=== PATIENT | female | born 1990 | race Caucasian/White ===

== ENCOUNTER 2018-04-10 15:24 | Emergency (ER) | payer MEDICARE, MEDICAID ==
[~2018-04-10] VITALS: Ht 167.6 cm; Wt 113.4 kg
--- OUTSIDE RECORDS SUMMARY | 2018-04-10 15:28 | XMS REPORT | Continuity of Care Document ---
Author Author [facility] Organization [facility] Address Unknown Phone Unavailable Care Team Providers Care Medical Billing And Coding Instructor Name Role Phone ALVIN DE OLIVEIRA PP Insurance Providers Payer Name Policy Number Subscriber Name Relationship Giulia [facility] [id number] Valerie Bekah S 01 Self / Same As Patient Wps Medicare [id number] Bekah Garcia S 01 Self / Same As Patient Advance Directives Directive Response Recorded Date Advance Directives N 09/18/12 1:38pm Problems No Known Problems or Medical conditions. Social History History Response Recorded Date/Time Alcohol Use Denies Use 09/18/12 4:36pm Recreational Drug Use N 09/18/12 4:36pm Recent Foreign Travel N 09/18/12 1:38pm Recent Infectious Disease Exposure N 03/25 4:36pm Hospitalization with Isolation Denies 03/25 1:38pm Allergies, Adverse Reactions, Alerts Allergen Type Severity Reaction Last Updated No Known Drug Allergies 09/18/12 Medications Medication Dose Units Route Sig Qty Days No Active Prescriptions or Reported Medications Response Recorded Date/Time Status not known Unknown Results No Known Relevant Diagnostic Tests, Laboratory Data and/or Discharge Summary. Encounters Encounter Location Date/Time Departed Emergency [facility] 03/25 1:27pm
--- OUTSIDE RECORDS SUMMARY | 2018-04-10 15:29 | XMS REPORT | Continuity of Care Document ---
Author Author On License Of [facility] Address Unknown Phone Unavailable Allergies There is no data. Medications There is no data. Problems Date Dx Coded Attending Type Code Diagnosis Diagnosed By 05/29/2011 465.9 ACUTE UPPER RESPIRATORY INFECTIONS OF UNSPECIFIED SITE 05/29/2011 LAVERNE PAUL DO K 465.9 ACUTE UPPER RESPIRATORY INFECTIONS OF UNSPECIFIED SITE 05/29/2011 BIANCA DAVIES APRN 465.9 ACUTE UPPER RESPIRATORY INFECTIONS OF UNSPECIFIED SITE 05/29/2011 465.9 ACUTE UPPER RESPIRATORY INFECTIONS OF UNSPECIFIED SITE 05/29/2011 465.9 ACUTE UPPER RESPIRATORY INFECTIONS OF UNSPECIFIED SITE 05/29/2011 465.9 ACUTE UPPER RESPIRATORY INFECTIONS OF UNSPECIFIED SITE 05/29/2011 465.9 ACUTE UPPER RESPIRATORY INFECTIONS OF UNSPECIFIED SITE 05/29/2011 465.9 ACUTE UPPER RESPIRATORY INFECTIONS OF UNSPECIFIED SITE 05/29/2011 465.9 ACUTE UPPER RESPIRATORY INFECTIONS OF UNSPECIFIED SITE 05/29/2011 465.9 ACUTE UPPER RESPIRATORY INFECTIONS OF UNSPECIFIED SITE 05/29/2011 PAUL LAVERNE BRASHER K 465.9 ACUTE UPPER RESPIRATORY INFECTIONS OF UNSPECIFIED SITE 05/29/2011 STEPHENIE AVALOS APRN 465.9 ACUTE UPPER RESPIRATORY INFECTIONS OF UNSPECIFIED SITE 05/29/2011 JOON JAIMES, CHARLES Mccurdy 465.9 ACUTE UPPER RESPIRATORY INFECTIONS OF UNSPECIFIED SITE 05/29/2011 PAUL JAMIE BRASHERA K 465.9 ACUTE UPPER RESPIRATORY INFECTIONS OF UNSPECIFIED SITE 05/29/2011 PAUL DO LAVERNE K 465.9 ACUTE UPPER RESPIRATORY INFECTIONS OF UNSPECIFIED SITE 05/29/2011 PAUL DO LAVERNE K 465.9 ACUTE UPPER RESPIRATORY INFECTIONS OF UNSPECIFIED SITE 05/29/2011 PAUL DO LAVERNE K 465.9 ACUTE UPPER RESPIRATORY INFECTIONS OF UNSPECIFIED SITE 05/18/2012 784.91 POSTNASAL DRIP 05/18/2012 786.2 COUGH 05/18/2012 JAMIE PAUL DOA K 784.91 POSTNASAL DRIP 05/18/2012 PAUL DO, LAVERNE K 786.2 COUGH 05/18/2012 SAMSON ALANIZ, BIANCA R 784.91 POSTNASAL DRIP 05/18/2012 SAMSON ALANIZ, BIANCA R 786.2 COUGH 05/18/2012 784.91 POSTNASAL DRIP 05/18/2012 786.2 COUGH 05/18/2012 784.91 POSTNASAL DRIP 05/18/2012 786.2 COUGH 05/18/2012 784.91 POSTNASAL DRIP 05/18/2012 786.2 COUGH 05/18/2012 784.91 POSTNASAL DRIP 05/18/2012 786.2 COUGH 05/18/2012 784.91 POSTNASAL DRIP 05/18/2012 786.2 COUGH 05/18/2012 784.91 POSTNASAL DRIP 05/18/2012 786.2 COUGH 05/18/2012 784.91 POSTNASAL DRIP 05/18/2012 786.2 COUGH 05/18/2012 PAUL DO, LAVERNE K 784.91 POSTNASAL DRIP 05/18/2012 PAUL DO, LAVERNE K 786.2 COUGH 05/18/2012 ROGELIO DALTON APRN, STEPHENIE N 784.91 POSTNASAL DRIP 05/18/2012 ROGELIO DALTON WASTEWATER PROJECT MANAGER, STEPHENIE N 786.2 COUGH 05/18/2012 JOON JAIMES, CHARLES Mccurdy 784.91 POSTNASAL DRIP 05/18/2012 JOON JAIMES, CHARLES Mccurdy 786.2 COUGH 05/18/2012 PAUL DO, LAVERNE K 784.91 POSTNASAL DRIP 05/18/2012 PAUL DO, LAVERNE K 786.2 COUGH 05/18/2012 PAUL DO, LAVERNE K 784.91 POSTNASAL DRIP 05/18/2012 PAUL DO, LAVERNE K 786.2 COUGH 05/18/2012 PAUL DO, LAVERNE K 784.91 POSTNASAL DRIP 05/18/2012 PAUL DO, LAVERNE K 786.2 COUGH 05/18/2012 PAUL DO, LAVERNE K 784.91 POSTNASAL DRIP 05/18/2012 PAUL DO, LAVERNE K 786.2 COUGH 07/22/2012 784.0 headache 07/22/2012 PAUL DO, LAVERNE K 784.0 headache 07/22/2012 JERONIMO DAVIES APRNRICIA R 784.0 headache 07/22/2012 784.0 headache 07/22/2012 784.0 headache 07/22/2012 784.0 headache 07/22/2012 784.0 headache 07/22/2012 784.0 headache 07/22/2012 784.0 headache 07/22/2012 784.0 headache 07/22/2012 PAUL JAMIE BRASHERA K 784.0 headache 07/22/2012 STEPHENIE AVALOS APRN N 784.0 headache 07/22/2012 CHARLES DUPREE MD 784.0 headache 07/22/2012 PAUL DO LAVERNE K 784.0 headache 07/22/2012 PAUL DO, LAVERNE K 784.0 HEADACHE 07/22/2012 PAUL DO, LAVERNE K 784.0 HEADACHE 08/17/2012 BEVERLY BRASHER LAVERNE K 462 PHARYNGITIS ACUTE 08/17/2012 BIANCA DAVIES APRN 462 PHARYNGITIS ACUTE 08/17/2012 462 PHARYNGITIS ACUTE 08/17/2012 462 PHARYNGITIS ACUTE 08/17/2012 462 PHARYNGITIS ACUTE 08/17/2012 462 PHARYNGITIS ACUTE 08/17/2012 462 PHARYNGITIS ACUTE 08/17/2012 462 PHARYNGITIS ACUTE 08/17/2012 462 PHARYNGITIS ACUTE 08/17/2012 LAVERNE PAUL DO K 462 PHARYNGITIS ACUTE 08/17/2012 STEPHENIE VAALOS APRN N 462 PHARYNGITIS ACUTE 08/17/2012 CHARLES DUPREE MD 462 PHARYNGITIS ACUTE 08/17/2012 LAVERNE PAUL DO K 462 PHARYNGITIS ACUTE 08/17/2012 JAMIE PAUL DOA K 462 PHARYNGITIS ACUTE 08/17/2012 JAMIE PAUL DOA K 462 PHARYNGITIS ACUTE 08/26/2012 BIANCA DAVIES APRN 461.9 SINUSITIS ACUTE 08/26/2012 461.9 SINUSITIS ACUTE 08/26/2012 461.9 SINUSITIS ACUTE 08/26/2012 461.9 SINUSITIS ACUTE 08/26/2012 461.9 SINUSITIS ACUTE 08/26/2012 461.9 SINUSITIS ACUTE 08/26/2012 461.9 SINUSITIS ACUTE 08/26/2012 461.9 SINUSITIS ACUTE 08/26/2012 LAVERNE PAUL DO 461.9 SINUSITIS ACUTE 08/26/2012 STEPHENIE AVALOS APRN N 461.9 SINUSITIS ACUTE 08/26/2012 CHARLES DUPREE MD 461.9 SINUSITIS ACUTE 08/26/2012 LAVERNE PAUL DO 461.9 SINUSITIS ACUTE 08/26/2012 LAVERNE PAUL DO K 461.9 SINUSITIS ACUTE 08/26/2012 JAMIE PAUL DOA K 461.9 SINUSITIS ACUTE 09/21/2012 719.41 PAIN- SHOULDER 09/21/2012 719.41 PAIN- SHOULDER 09/21/2012 719.41 PAIN- SHOULDER 09/21/2012 719.41 PAIN- SHOULDER 09/21/2012 719.41 PAIN- SHOULDER 09/21/2012 719.41 PAIN- SHOULDER 09/21/2012 719.41 PAIN- SHOULDER 09/21/2012 LAVERNE PAUL DO 719.41 PAIN- SHOULDER 09/21/2012 STEPHENIE AVALOS APRN N 719.41 PAIN- SHOULDER 09/21/2012 CHARLES DUPREE MD 719.41 PAIN- SHOULDER 09/21/2012 LAVERNE PAUL DO 719.41 PAIN- SHOULDER 09/21/2012 LAVERNE PAUL DO K 719.41 PAIN- SHOULDER 09/21/2012 PAUL JAMIE BRASHERA K 719.41 PAIN- SHOULDER 11/18/2012 477.9 ALLERGIC RHINITIS 11/18/2012 477.9 ALLERGIC RHINITIS 11/18/2012 477.9 ALLERGIC RHINITIS 11/18/2012 477.9 ALLERGIC RHINITIS 11/18/2012 477.9 ALLERGIC RHINITIS 11/18/2012 477.9 ALLERGIC RHINITIS 11/18/2012 LAVERNE PAUL DO K 477.9 ALLERGIC RHINITIS 11/18/2012 STEPHENIE AVALOS APRN N 477.9 ALLERGIC RHINITIS 11/18/2012 CHARLES DUPREE MD 477.9 ALLERGIC RHINITIS 11/18/2012 LAVERNE PAUL DO 477.9 ALLERGIC RHINITIS 11/18/2012 PAUL JAMIE BRASHERA K 477.9 ALLERGIC RHINITIS 11/18/2012 PAUL JAMIE BRASHERA K 477.9 ALLERGIC RHINITIS 01/05/2013 305.1 TOBACCO ABUSE 01/05/2013 V65.42 TOBACCO COUNSELING 01/05/2013 305.1 TOBACCO ABUSE 01/05/2013 V65.42 TOBACCO COUNSELING 01/05/2013 305.1 TOBACCO ABUSE 01/05/2013 V65.42 TOBACCO COUNSELING 01/05/2013 305.1 TOBACCO ABUSE 01/05/2013 V65.42 TOBACCO COUNSELING 01/05/2013 PAUL DO, LAVERNE K 305.1 TOBACCO ABUSE 01/05/2013 PAUL DO, LAVERNE K V65.42 TOBACCO COUNSELING 01/05/2013 STEPHENIE AVALOS APRN N 305.1 TOBACCO ABUSE 01/05/2013 MERCADOSTEPHENIE FROST APRN N V65.42 TOBACCO COUNSELING 01/05/2013 CHARLES DUPREE MD 305.1 TOBACCO ABUSE 01/05/2013 CHARLES DUPREE MD V65.42 TOBACCO COUNSELING 01/05/2013 PAUL DO, LAVERNE K 305.1 TOBACCO ABUSE 01/05/2013 PAUL DO, LAVERNE K V65.42 TOBACCO COUNSELING 01/05/2013 PAUL DO, LAVERNE K 305.1 TOBACCO ABUSE 01/05/2013 PAUL DO, LAVERNE K V65.42 TOBACCO COUNSELING 01/05/2013 PAUL DO, LAVERNE K 305.1 TOBACCO ABUSE 01/05/2013 PAUL DO, LAVERNE K V65.42 TOBACCO COUNSELING 01/17/2013 380.10 INFECTIVE OTITIS EXTERNA UNSPECIFIED 01/17/2013 380.10 INFECTIVE OTITIS EXTERNA UNSPECIFIED 01/17/2013 380.10 INFECTIVE OTITIS EXTERNA UNSPECIFIED 01/17/2013 PAUL DO, LAVERNE K 380.10 INFECTIVE OTITIS EXTERNA UNSPECIFIED 01/17/2013 MAVIS AVALOS APRNCY N 380.10 INFECTIVE OTITIS EXTERNA UNSPECIFIED 01/17/2013 CHARLES DUPREE MD 380.10 INFECTIVE OTITIS EXTERNA UNSPECIFIED 01/17/2013 PAUL DO, LAVERNE K 380.10 INFECTIVE OTITIS EXTERNA UNSPECIFIED 01/17/2013 PAUL DO, LAVERNE K 380.10 INFECTIVE OTITIS EXTERNA UNSPECIFIED 01/17/2013 PAUL DO, LAVERNE K 380.10 INFECTIVE OTITIS EXTERNA UNSPECIFIED 01/31/2013 V72.41 TEST NEGATIVE RESULT 01/31/2013 V72.41 TEST NEGATIVE RESULT 01/31/2013 V72.41 TEST NEGATIVE RESULT 01/31/2013 PAUL DO, LAVERNE K V72.41 TEST NEGATIVE RESULT 01/31/2013 STEPHENIE AVALOS APRN V72.41 TEST NEGATIVE RESULT 01/31/2013 CHARLES DUPREE MD V72.41 TEST NEGATIVE RESULT 01/31/2013 LAVERNE PAUL DO V72.41 TEST NEGATIVE RESULT 01/31/2013 PAUL JAMIE BRASHERA K V72.41 TEST NEGATIVE RESULT 01/31/2013 JAMIE PAUL DOA K V72.41 TEST NEGATIVE RESULT 02/04/2013 787.02 NAUSEA ALONE 02/04/2013 787.02 NAUSEA ALONE 02/04/2013 787.02 NAUSEA ALONE 02/04/2013 LAVERNE PAUL DO 787.02 NAUSEA ALONE 02/04/2013 STEPHENIE AVALOS APRN 787.02 NAUSEA ALONE 02/04/2013 CHARLES DUPREE MD 787.02 NAUSEA ALONE 02/04/2013 LAVERNE PAUL DO K 787.02 NAUSEA ALONE 02/04/2013 LAVERNE PAUL DO 787.02 NAUSEA ALONE 02/04/2013 JAMIE PAUL DOA K 787.02 NAUSEA ALONE 02/22/2013 599.0 URINARY TRACT INFECTION SITE NOT SPECIFIED 02/22/2013 599.0 URINARY TRACT INFECTION SITE NOT SPECIFIED 02/22/2013 599.0 URINARY TRACT INFECTION SITE NOT SPECIFIED 02/22/2013 LAVERNE PAUL DO 599.0 URINARY TRACT INFECTION SITE NOT SPECIFIED 02/22/2013 STEPHENIE AVALOS APRN 599.0 URINARY TRACT INFECTION SITE NOT SPECIFIED 02/22/2013 CHARLES DUPREE MD 599.0 URINARY TRACT INFECTION SITE NOT SPECIFIED 02/22/2013 LAVERNE PAUL DO K 599.0 URINARY TRACT INFECTION SITE NOT SPECIFIED 02/22/2013 JAMIE PAUL DOA K 599.0 URINARY TRACT INFECTION SITE NOT SPECIFIED 02/22/2013 LAVERNE PAUL DO K 599.0 URINARY TRACT INFECTION SITE NOT SPECIFIED 02/24/2013 V76.2 CERVICAL CANCER SCREENING (PAP SMEAR) 02/24/2013 493.90 ASTHMA UNSPECIFIED 02/24/2013 789.04 ABDOMINAL PAIN LEFT LOWER QUADRANT 02/24/2013 V25.9 CONTRACEPTION MANAGEMENT 02/24/2013 V74.5 STD SCREEN 02/24/2013 V76.2 CERVICAL CANCER SCREENING (PAP SMEAR) 02/24/2013 493.90 ASTHMA UNSPECIFIED 02/24/2013 789.04 ABDOMINAL PAIN LEFT LOWER QUADRANT 02/24/2013 V25.9 CONTRACEPTION MANAGEMENT 02/24/2013 V74.5 STD SCREEN 02/24/2013 V76.2 CERVICAL CANCER SCREENING (PAP SMEAR) 02/24/2013 PAUL DO LAVERNE K 493.90 ASTHMA UNSPECIFIED 02/24/2013 PAUL DO, LAVERNE K 789.04 ABDOMINAL PAIN LEFT LOWER QUADRANT 02/24/2013 PAUL DO, LAVERNE K V25.9 CONTRACEPTION MANAGEMENT 02/24/2013 PAUL DO, LAVERNE K V74.5 STD SCREEN 02/24/2013 PAUL DO, LAVERNE K V76.2 CERVICAL CANCER SCREENING (PAP SMEAR) 02/24/2013 STEPHENIE AVALOS APRN N 493.90 ASTHMA UNSPECIFIED 02/24/2013 MERCADO CASHLETA WASTEWATER PROJECT MANAGER, STEPHENIE N 789.04 ABDOMINAL PAIN LEFT LOWER QUADRANT 02/24/2013 MERCADO CASHLETA WASTEWATER PROJECT MANAGER, STEPHENIE N V25.9 CONTRACEPTION MANAGEMENT 02/24/2013 MERCADO CASHERO WASTEWATER PROJECT MANAGER, STEPHENIE N V74.5 STD SCREEN 02/24/2013 MERCADO CASHERO WASTEWATER PROJECT MANAGER, STEPHENIE N V76.2 CERVICAL CANCER SCREENING (PAP SMEAR) 02/24/2013 CHARLES DUPREE MD 493.90 ASTHMA UNSPECIFIED 02/24/2013 CHARLES DUPREE MD 789.04 ABDOMINAL PAIN LEFT LOWER QUADRANT 02/24/2013 CHARLES DUPREE MD V25.9 CONTRACEPTION MANAGEMENT 02/24/2013 CHARLES DUPREE MD V74.5 STD SCREEN 02/24/2013 CHARLES DUPREE MD V76.2 CERVICAL CANCER SCREENING (PAP SMEAR) 02/24/2013 PAUL DO LAVERNE K 493.90 ASTHMA UNSPECIFIED 02/24/2013 PAUL DO LAVERNE K 789.04 ABDOMINAL PAIN LEFT LOWER QUADRANT 02/24/2013 PAUL DO LAVERNE K V25.9 CONTRACEPTION MANAGEMENT 02/24/2013 PAUL DO, LAVERNE K V74.5 STD SCREEN 02/24/2013 PAUL DO, LAVERNE K V76.2 CERVICAL CANCER SCREENING (PAP SMEAR) 02/24/2013 PAUL DO LAVERNE K 493.90 ASTHMA UNSPECIFIED 02/24/2013 PAUL DO LAVERNE K 789.04 ABDOMINAL PAIN LEFT LOWER QUADRANT 02/24/2013 PAUL DO LAVERNE K V25.9 CONTRACEPTION MANAGEMENT 02/24/2013 PAUL DO, LAVERNE K V74.5 STD SCREEN 02/24/2013 PAUL DO, LAVERNE K V76.2 CERVICAL CANCER SCREENING (PAP SMEAR) 02/24/2013 PAUL DO, LAVERNE K 493.90 ASTHMA UNSPECIFIED 02/24/2013 PAUL DO LAVERNE K 789.04 ABDOMINAL PAIN LEFT LOWER QUADRANT 02/24/2013 PAUL DOJAMIEA K V25.9 CONTRACEPTION MANAGEMENT 02/24/2013 PAUL DO LAVERNE K V74.5 STD SCREEN 02/24/2013 PAUL DO, LAVERNE K V76.2 CERVICAL CANCER SCREENING (PAP SMEAR) 04/12/2013 LAVERNE PAUL DO K V04.81 FLU SHOT 04/12/2013 STEPHENIE AVALOS APRN N V04.81 FLU SHOT 04/12/2013 CHARLES DUPREE MD V04.81 FLU SHOT 04/12/2013 LAVERNE PAUL DO K V04.81 FLU SHOT 04/12/2013 PAUL DOJAMIEA K V04.81 FLU SHOT 04/12/2013 PAUL DOJAMIEA K V04.81 FLU SHOT 07/26/2013 STEPHENIE AVALOS APRN N 034.0 STREPTOCOCCAL SORE THROAT 07/26/2013 CHARLES DUPREE MD 034.0 STREPTOCOCCAL SORE THROAT 07/26/2013 LAVERNE PAUL DO K 034.0 STREPTOCOCCAL SORE THROAT 07/26/2013 LAVERNE PAUL DO K 034.0 STREPTOCOCCAL SORE THROAT 07/26/2013 JAMIE PAUL DOA K 034.0 STREPTOCOCCAL SORE THROAT 09/01/2013 CHARLES DUPREE MD 719.44 joint pain fingers 09/01/2013 PAUL DOJAMIEA K 719.44 joint pain fingers 09/01/2013 PAUL DOJAMIEA K 719.44 JOINT PAIN FINGERS 09/01/2013 PAUL DO LAVERNE K 719.44 JOINT PAIN FINGERS 10/24/2013 PAUL DOJAMIEA K 845.00 UNSPECIFIED SITE OF ANKLE SPRAIN 10/24/2013 PAUL DOJAMIEA K 845.00 UNSPECIFIED SITE OF ANKLE SPRAIN 10/24/2013 PAUL JAMIE BRASHERA K 845.00 UNSPECIFIED SITE OF ANKLE SPRAIN 12/26/2013 LAVERNE PAUL DO 462 ACUTE PHARYNGITIS 12/26/2013 LAVERNE PAUL DO 786.2 COUGH 12/26/2013 LAVERNE PAUL DO V25.02 CONTRACEPTION - ANY METHOD 12/26/2013 LAVERNE PAUL DO V69.2 HIGH-RISK SEXUAL BEHAVIOR Procedures Code Description [place] [address] XRAY SHOULDER RIGHT COMP 2 VIEWS 09/28/2012 Physical Physical Therapy, [facility] 12/17/2012 39838 GC/CHLAM PROBE (STATE) 02/07/2013 39433 PAP SMEAR 02/07/2013 83554 MEASURE BLOOD OXYGEN LEVEL 02/07/2013 Q0091 PAP SMEAR OBTAIN SMEAR 02/07/2013 02796 URINE TEST (IN- HOUSE) 02/22/2013 25305 UA W/ CULTURE IF INDICATED 02/22/2013 76616 CULTURE URINE 02/23/2013 51442 THERAPUTIC INJ SQ/IM 02/24/2013 J1050 DEPO PROVERA 02/24/2013 51422 URINE TEST (IN- HOUSE) 02/24/2013 24797 TRICHOMONAS (IN-HOUSE) 02/24/2013 28809 CULTURE UROGENITAL 02/27/2013 J0696 ROCEPHIN INJ 1 g 07/26/2013 56424 STREP A (IN-HOUSE) 07/26/2013 45457 INFLUENZA A & B (IN-HOUSE) 07/26/2013 38864 ROUTINE VENIPUNCTURE 09/01/2013 37162 XRAY HAND RIGHT MIN 3 VIEWS 09/01/2013 ANAANA IDA ANALYZER (SCREEN) 09/01/2013 78884 URIC ACID 09/01/2013 40517 CBC 09/01/2013 88282 CRP 09/01/2013 55878 TEST, URINE (IN- HOUSE) 12/26/2013 09484 OXIMETRY 12/26/2013 J1050 DEPO PROVERA 12/26/2013 86579 THERAPUTIC INJ SQ/IM 12/26/2013 90493 STREP A (IN-HOUSE) 12/26/2013 Results There is no data. Encounters ACCT No. Visit Date/Time Discharge Status Pt. Type Provider Facility Loc./Unit Complaint [id number] 12/26/2013 11:44:00 12/26/2013 23:59:59 CLS Outpatient LAVERNE PAUL DO [id number] 10/29/2013 10:05:00 10/29/2013 23:59:59 CLS Outpatient LAVERNE PAUL DO [id number] 10/24/2013 12:22:00 10/24/2013 23:59:59 CLS Outpatient LAVERNE PAUL DO [id number] 09/01/2013 14:17:00 09/01/2013 23:59:59 CLS Outpatient CHARLES DUPREE MD [id number] 07/26/2013 12:11:00 07/26/2013 23:59:59 CLS Outpatient STEPHENIE AVALOS APRN [place] [id number] 04/12/2013 10:15:00 04/12/2013 23:59:59 CLS Outpatient LAVERNE PAUL DO [id number] 09/21/2012 09:45:00 09/21/2012 23:59:59 CLS Outpatient [id number] 08/26/2012 16:47:00 08/26/2012 23:59:59 CLS Outpatient SAMSON WASTEWATER PROJECT MANAGERBIANCA Ibrahim [id number] 08/17/2012 15:06:00 08/17/2012 23:59:59 CLS Outpatient LAVERNE PAUL DO [id number] 07/22/2012 12:03:00 07/22/2012 23:59:59 CLS Outpatient [id number] 05/29/2011 15:25:00 05/29/2011 23:59:59 CLS Outpatient LAVERNE PAUL DO [id number] 03/28/2013 12:21:00 Document Registration [id number] 02/24/2013 09:09:00 Document Registration [id number] 02/04/2013 13:47:00 Document Registration [id number] 01/05/2013 17:51:00 Document Registration [id number] 12/02/2012 14:14:00 Document Registration [id number] 11/18/2012 13:11:00 Document Registration [id number] 01/04/2013 15:12:00 01/17/2013 08:18:00 DIS Outpatient
[2018-04-10 16:01] LABS: BILIRUBIN,URINE NEGATIVE (NEGATIVE); CLARITY,URINE CLEAR; COLOR,URINE YELLOW; GLUCOSE, URINE (UA) NEGATIVE (NEGATIVE); KETONES,URINE NEGATIVE (NEGATIVE); LEUKOCYTE ESTERASE ,URINE 2+ (NEGATIVE); NITRITE,URINE NEGATIVE (NEGATIVE); PH,URINE 6.5 (5-9); PROTEIN,URINE NEGATIVE (NEGATIVE); UROBILINOGEN,URINE NORMAL (NORMAL)
[2018-04-10 16:01] LABS: BASOPHILS % (AUTO) 1 % (0-10); EOSINOPHILS # (AUTO) 0.1 10^3/uL (0.0-0.3); EOSINOPHILS % (AUTO) 2 % (0-10); HEMATOCRIT 41 % (35-52); HEMOGLOBIN 14.3 G/DL (11.5-16.0); LYMPHOCYTES # (AUTO) 3.2 X 10^3 (1.0-4.0); LYMPHOCYTES % (AUTO) 36 % (12-44); MEAN CORPUSCULAR HEMOGLOBIN 28 PG (25-34); MEAN CORPUSCULAR HGB CONC 35 G/DL (32-36); MEAN CORPUSCULAR VOLUME 80 FL (80-99); MEAN PLATELET VOLUME 9.7 FL (7.4-10.4); MONOCYTES # (AUTO) 0.6 X 10^3 (0.0-1.0); MONOCYTES % (AUTO) 7 % (0-12); NEUTROPHILS # (AUTO) 4.9 X 10^3 (1.8-7.8); NEUTROPHILS % (AUTO) 55 % (42-75); PLATELET COUNT 266 10^3/uL (130-400); RED BLOOD COUNT 5.06 10^6/uL (4.35-5.85); RED CELL DISTRIBUTION WIDTH 14.9 % (10.0-14.5); WHITE BLOOD COUNT 8.9 10^3/uL (4.3-11.0)
[2018-04-10 16:11] LABS: BACTERIA,URINE NEGATIVE /HPF
[2018-04-10 16:20] LABS: ALANINE AMINOTRANSFERASE 31 U/L (0-55); ALBUMIN 4.7 GM/DL (3.2-4.5); ALKALINE PHOSPHATASE 68 U/L (40-136); BILIRUBIN,TOTAL 0.4 MG/DL (0.1-1.0); BUN/CREATININE RATIO 11; CALCIUM 10.4 MG/DL (8.5-10.1); CARBON DIOXIDE 22 MMOL/L (21-32); CHLORIDE 105 MMOL/L (98-107); CREATININE SERUM 0.82 MG/DL (0.60-1.30); GFR ESTIMATED > 60; GLUCOSE 92 MG/DL (70-105); LIPASE 26 U/L (8-78); POTASSIUM 3.7 MMOL/L (3.6-5.0); SODIUM 140 MMOL/L (135-145); TOTAL PROTEIN 7.6 GM/DL (6.4-8.2)
--- NOTE | 2018-04-10 16:41 | ED Abdominal Pain ---
General Chief Complaint: Abdominal/GI Problems Stated Complaint: ABD PAIN Nursing Triage Note: PT AMB TO ROOM #10 W/O DIFFICULTY WITH CO LOWER ABD PAIN THAT RADIATES TO HER BACK. REPORTS PAIN BEGAN 3 DAYS AGO AND HAS BEEN STEADILY INCREASING SINCE. UPON ARRIVAL TO ED PT BOWEL SOUNDS NOTED TO BE ACTIVE BILAT AND REPORTS LAST BM ON THIS DAY. PT REPORTS LAST MENSTRUAL CYCLE BEGAN ON 02/25/18 AND IS CURRENTLY 2 WKS LATE. Sepsis Screen: No Definite Risk Source of Information: Patient Exam Limitations: No Limitations History of Present Illness Date Seen by Provider: Apr 10, 2018 Time Seen by Provider: 15:45 Initial Comments This 27-year-old woman presents to the emergency room with complaints of generalized type of abdominal pain associated with nausea over the past 3 days. It seems to be focused around the epigastric region and the suprapubic region. She denies any urinary changes, vaginal discharge, pain with intercourse, diarrhea, constipation, or measured fever. She reports family thought she had a subjective fever earlier today. Last bowel movement was at noon today and was normal. Patient reports she is almost 2 weeks late on her period. Pain seems to be worse with movement and sitting up but is better lying down. Pain is reported as 9/10. Pain initially seemed somewhat migratory. Allergies and Home Medications Allergies Coded Allergies: No Known Drug Allergies (Unverified , 09/18/12) Home Medications Cephalexin 500 Mg Capsule, 500 MG PO QID Prescribed by: JING ONEAL on 04/10/181811 Omeprazole 20 Mg Tablet.dr, 20 MG PO BID Prescribed by: JING ONEAL on 04/10/181811 Patient Home Medication List Home Medication List Reviewed: Yes Review of Systems Review of Systems Constitutional: see HPI EENTM: No Symptoms Reported Respiratory: No Symptoms Reported Cardiovascular: No Symptoms Reported Gastrointestinal: See HPI Genitourinary: No Symptoms Reported Musculoskeletal: no symptoms reported Skin: no symptoms reported Psychiatric/Neurological: No Symptoms Reported Endocrine: No Symptoms Reported Hematologic/Lymphatic: No Symptoms Reported Past Gwdicwv-Vehpyq-Lbpbwd Hx Past Med/Social Hx: Reviewed and Corrections made Patient Social History Alcohol Use: Denies Use Recreational Drug Use: No Smoking Status: Current Everyday Smoker Type Used: Cigarettes 2nd Hand Smoke Exposure: Yes Recent Foreign Travel: No Contact w/Someone Who Travel: No Recent Infectious Disease Expo: No Recent Hopitalizations: No Physical Abuse: No Sexual Abuse: No Seasonal Allergies Seasonal Allergies: No Past Medical History Surgeries: Yes Adenoidectomy, Tonsillectomy Respiratory: Yes Asthma Cardiac: No Neurological: No : No Last Menstrual Period: Feb 25, 2018 Genitourinary: No Gastrointestinal: No Musculoskeletal: No Endocrine: No HEENT: No Cancer: No Psychosocial: No Integumentary: No Blood Disorders: No Family Medical History Reviewed Nursing Family Hx Physical Exam Vital Signs Vital Signs - First Documented 04/10/18 15:35 Temp 97.9 Pulse 80 Resp 18 B/P (MAP) 119/90 (100) Pulse Ox 98 O2 Delivery Room Air Capillary Refill : Less Than 3 Seconds Height/Weight/BMI Height: 5'6.00" Weight: 250lbs. oz. 113.703752tu; BMI Method:Stated General Appearance: WD/WN, no apparent distress HEENT: PERRL/EOMI, normal ENT inspection Neck: normal inspection Respiratory: lungs clear, normal breath sounds, no respiratory distress, no accessory muscle use Cardiovascular: regular rate, rhythm, no edema, no murmur Gastrointestinal: normal bowel sounds, soft, tenderness (epigastrium and throughout the pelvis) Extremities: normal inspection, no pedal edema Neurologic/Psychiatric: manufacturing development engineer II-XII nml as tested, no motor/sensory deficits, alert, normal mood/affect, oriented x 3 Skin: normal color, warm/dry Progress/Results/Core Measures Results/Orders Lab Results Laboratory Tests Test 04/10/18 15:37 04/10/18 15:50 Range/Units Urine Color YELLOW Urine Clarity CLEAR Urine pH 6.5 5-9 Urine Specific [place] 1.010 L 1.016-1.022 Urine Protein NEGATIVE NEGATIVE Urine Glucose (UA) NEGATIVE NEGATIVE Urine Ketones NEGATIVE NEGATIVE Urine Nitrite NEGATIVE NEGATIVE Urine Bilirubin NEGATIVE NEGATIVE Urine Urobilinogen NORMAL NORMAL MG/DL Urine Leukocyte Esterase 2+ H NEGATIVE Urine RBC (Auto) 3+ H NEGATIVE Urine RBC 2-5 H /HPF Urine WBC 5-10 H /HPF Urine Squamous Epithelial Cells 5-10 /HPF Urine Crystals NONE /LPF Urine Bacteria NEGATIVE /HPF Urine Casts NONE /LPF Urine Mucus NEGATIVE /LPF Urine Culture Indicated YES White Blood Count 8.9 4.3-11.0 10^3/uL Red Blood Count 5.06 4.35-5.85 10^6/uL Hemoglobin 14.3 11.5-16.0 G/DL Hematocrit 41 35-52 % Mean Corpuscular Volume 80 80-99 FL Mean Corpuscular Hemoglobin 28 25-34 PG Mean Corpuscular Hemoglobin Concent 35 32-36 G/DL Red Cell Distribution Width 14.9 H 10.0-14.5 % Platelet Count 266 130-400 10^3/uL Mean Platelet Volume 9.7 7.4-10.4 FL Neutrophils (%) (Auto) 55 42-75 % Lymphocytes (%) (Auto) 36 12-44 % Monocytes (%) (Auto) 7 0-12 % Eosinophils (%) (Auto) 2 0-10 % Basophils (%) (Auto) 1 0-10 % Neutrophils # (Auto) 4.9 1.8-7.8 X 10^3 Lymphocytes # (Auto) 3.2 1.0-4.0 X 10^3 Monocytes # (Auto) 0.6 0.0-1.0 X 10^3 Eosinophils # (Auto) 0.1 0.0-0.3 10^3/uL Basophils # (Auto) 0.0 0.0-0.1 10^3/uL Sodium Level 140 135-145 MMOL/L Potassium Level 3.7 3.6-5.0 MMOL/L Chloride Level 105 98-107 MMOL/L Carbon Dioxide Level 22 21-32 MMOL/L Anion Gap 13 5-14 MMOL/L Blood Urea Nitrogen 9 7-18 MG/DL Creatinine 0.82 0.60-1.30 MG/DL Estimat Glomerular Filtration Rate > 60 BUN/Creatinine Ratio 11 Glucose Level 92 70-105 MG/DL Calcium Level 10.4 H 8.5-10.1 MG/DL Corrected Calcium 8.5-10.1 MG/DL Total Bilirubin 0.4 0.1-1.0 MG/DL Aspartate Amino Transf (AST/SGOT) 21 5-34 U/L Alanine Aminotransferase (ALT/SGPT) 31 0-55 U/L Alkaline Phosphatase 68 40-136 U/L Total Protein 7.6 6.4-8.2 GM/DL Albumin 4.7 H 3.2-4.5 GM/DL Lipase 26 8-78 U/L Serum Test, Qualitative NEGATIVE NEGATIVE Micro Results Microbiology 04/10/18 Urine Culture - Final, Complete See Report My Orders Orders - JING DEMPSEY MD Cbc With Automated Diff (04/10/18 15:52) Comprehensive Metabolic Panel (04/10/18 15:52) Hcg,Qualitative Serum (04/10/18 15:52) Lipase (04/10/18 15:52) Ua Culture If Indicated (04/10/18 15:52) Saline Lock/Iv-Start (04/10/18 15:52) Urine Culture (04/10/18 15:37) Ct Abdomen/Pelvis W (04/10/18 16:37) Iohexol Injection (Omnipaque 350 Mg/Ml 1 (04/10/18 16:45) Sodium Chloride Flush (Catheter Flush Sy (04/10/18 16:45) Ns (Ivpb) (Sodium Chloride 0.9%) (04/10/18 16:45) Pharmacy Communication (Pharmacy Communi (04/10/18 16:41) Lidocaine 2% Viscous 15 Ml (Xylocaine Vi (04/10/18 17:30) Antacid Suspension (Mylanta Suspension (04/10/18 17:30) Ondansetron Injection (Zofran Injectio (04/10/18 17:30) Medications Given in ED Vital Signs/I&O 04/10/18 04/10/18 15:35 18:18 Temp 97.9 97.9 Pulse 80 63 Resp 18 18 B/P (MAP) 119/90 (100) 127/82 (100) Pulse Ox 98 98 O2 Delivery Room Air Room Air Blood Pressure Mean: 100 Progress Progress Note #1: Time: 16:50 Progress Note Labs were unremarkable. UA demonstrated subtle suggestion of urinary tract infection. No abnormalities were found to explain her pain. I discussed further options for workup including CT scan of the abdomen and pelvis. Risks and benefits were explained to her including radiation risk and risk of possible reaction to contrast dye. Patient expressed understanding of the risks and would like to proceed with CT scan. She would really like some answers regarding her pain, especially since she has 2 young children at home to care for. Progress Note #2: Progress Note CT scan revealed some cholelithiasis without cholecystitis as well as some small ovarian cysts. Patient is felt to have multi-factorial etiology for her pain. Contributing factors may include urinary tract infection, ovarian cysts, cholelithiasis, and gastritis. Patient reports GI cocktail and Zofran did improve her pain to a satisfactory degree. Discharge instructions were reviewed with patient. Diagnostic Imaging Diagonstic Imaging: CT Plain Films/CT/US/NM/MRI: abdomen, pelvis Comments CT abdomen and pelvis reviewed by me and report reviewed. Discussed with Dr. Barajas. See report below: NAME: BEKAH GARCIA [facility] REC#: [id number] PT STATUS: DEP ER : 1990 PHYSICIAN: JING DEMPSEY MD ADMIT DATE: 04/10/18/ER Signed Date of Exam: 04/10/18 CT ABDOMEN/PELVIS W PROCEDURE: CT abdomen and pelvis with contrast. TECHNIQUE: Multiple contiguous axial images were obtained through the abdomen and pelvis after administration of intravenous contrast. INDICATION: Abdominal pain. FINDINGS: There are no prior studies available for comparison. There are numerous gallstones within the gallbladder. The gallbladder itself is not well distended and difficult to assess. There is no clear evidence for acute cholecystitis; however if further evaluation is desired, then ultrasound will be recommended. The liver is of lower density than usually seen. 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 The spleen, pancreas, adrenals, kidneys, aorta and inferior vena cava show no sign of an acute abnormality. The stomach is partially filled with fluid and consequently difficult to assess. There is no pelvic mass or free fluid collection noted. There may be small cysts associated with both ovaries. If further evaluation is desired, then ultrasound will be recommended. The urinary bladder is grossly unremarkable. There are few diverticula in the sigmoid colon, but there is no sign of acute diverticulitis. The appendix is visualized and is not abnormally thickened. The lung bases are clear. The bone windows show no evidence for a fracture or for a destructive lesion. IMPRESSION: 1. There is cholelithiasis, but there is no evidence for acute cholecystitis. There is also a question of a few small cysts associated with the ovaries. If further evaluation of the gallbladder and the ovaries is desired, then ultrasound will be recommended. 2. There is no acute abnormality of the abdomen or pelvis noted otherwise. 3. 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 4. These results were discussed with Dr. Dempsey. Dictated by: Dictated on workstation # [id number] Dict: 04/10/18 1704 Trans: 04/11/18 1041 Interpreted by: MARIA ALEJANDRA BARAJAS MD Electronically signed by: MARIA ALEJANDRA BARAJAS MD 04/11/18 1041 Departure Impression Primary Impression: Epigastric pain Additional Impressions: Pelvic pain Cholelithiasis Qualified Codes: K80.20 - Calculus of gallbladder without cholecystitis without obstruction Urinary tract infection Qualified Codes: N39.0 - Urinary tract infection, site not specified Ovarian cyst Qualified Codes: N83.201 - Unspecified ovarian cyst, right side; N83.202 - Unspecified ovarian cyst, left side Disposition: HOME, SELF-CARE Condition: Improved Departure-Patient Inst. Decision time for Depature: 17:50 Referrals: NO,LOCAL PHYSICIAN (PCP/Family) Primary Care Physician Patient Instructions: Gallstones (DC), Acute Abdomen (Belly Pain), Adult (DC), Ovarian Cyst (DC) Add. Discharge Instructions: Take the omeprazole and antacid medication as prescribed for the next month. Follow-up with a primary care provider soon as possible. Please call him Thursday to make an appointment. If you would like to go to the [facility] you may call them at [phone]. Complete your antibiotic for bladder infection as prescribed. Avoid the following: Eating large meals, eating close to bedtime, fatty or greasy foods, alcohol, tobacco, NSAID medications such as ibuprofen or naproxen , caffeine, carbonation, chocolate, spicy foods, tomato products, mints, and anything else you know irritates your stomach. Return to emergency room if you have worsening symptoms. You may take Tylenol (acetaminophen) up to 1000 mg every 6 hours as needed for pain. All discharge instructions reviewed with patient and/or family. Voiced understanding. Scripts Omeprazole (Omeprazole) 20 Mg Tablet. 20 MG PO BID, #60 TAB Prov: JING DEMPSEY MD 04/10/18 Cephalexin (Keflex) 500 Mg Capsule 500 MG PO QID, #28 CAP Prov: JING DEMPSEY MD 04/10/18 JING DEMPSEY MD Apr 10, 2018 16:41
[2018-04-10] MEDS ORDERED: IOHEXOL 350 MG/ML 100 ML (OMNIPAQUE 350) VIAL IV ONE (16:45)
[2018-04-10] MEDS ORDERED: CATHETER FLUSH 10 ML SYR IV PRN (16:45)
[2018-04-10] MEDS ORDERED: NS 250 ML (IVPB) BAG IV ONE (16:45)
[2018-04-10] MEDS ORDERED: LIDOCAINE 2% VISCOUS 15 ML UDC PO ONE (17:30)
[2018-04-10] MEDS ORDERED: ANTACID SUSP 30 ML UDC (MYLANTA) PO ONE (17:30)
[2018-04-10] MEDS ORDERED: ONDANSETRON 4 MG/2 ML (SDV) Z0FRAN IVP ONE (17:30)
--- NOTE | 2018-04-10 17:38 | Diagnostic Imaging Report ---
PROCEDURE: CT abdomen and pelvis with contrast. TECHNIQUE: Multiple contiguous axial images were obtained through the abdomen and pelvis after administration of intravenous contrast. INDICATION: Abdominal pain. FINDINGS: There are no prior studies available for comparison. There are numerous gallstones within the gallbladder. The gallbladder itself is not well distended and difficult to assess. There is no clear evidence for acute cholecystitis; however if further evaluation is desired, then ultrasound will be recommended. The liver is of lower density than usually seen. 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 The spleen, pancreas, adrenals, kidneys, aorta and inferior vena cava show no sign of an acute abnormality. The stomach is partially filled with fluid and consequently difficult to assess. There is no pelvic mass or free fluid collection noted. There may be small cysts associated with both ovaries. If further evaluation is desired, then ultrasound will be recommended. The urinary bladder is grossly unremarkable. There are few diverticula in the sigmoid colon, but there is no sign of acute diverticulitis. The appendix is visualized and is not abnormally thickened. The lung bases are clear. The bone windows show no evidence for a fracture or for a destructive lesion. IMPRESSION: 1. There is cholelithiasis, but there is no evidence for acute cholecystitis. There is also a question of a few small cysts associated with the ovaries. If further evaluation of the gallbladder and the ovaries is desired, then ultrasound will be recommended. 2. There is no acute abnormality of the abdomen or pelvis noted otherwise. 3. 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 4. These results were discussed with Dr. Dempsey. Dictated by: Dictated on workstation # [id number]
[2018-04-10] MEDS ORDERED: CEPH-507 PO (18:12)
[2018-04-10] MEDS ORDERED: OMEP20TA7 PO (18:12)
[2018-04-10 18:18] VITALS: BP 127/82
== END 2018-04-10 18:20 | disposition home or self-care (01) ==
LOC: EDUNIT# 15:24 → ER 15:25
DX: K80.20 Calculus of gallbladder without cholecystitis without obstruction (principal); N39.0 Urinary tract infection, site not specified; N83.201 Unspecified ovarian cyst, right side; J45.909 Unspecified asthma, uncomplicated; F17.210 Nicotine dependence, cigarettes, uncomplicated; Z90.89 Acquired absence of other organs
CPT/HCPCS: 36415; 74177; 80053; 81000; 83690; 84703; 85025; 87088

== ENCOUNTER 2019-09-09 16:02 | Outpatient (CLI) | payer MEDICARE, MEDICAID ==
[~2019-09-09] VITALS: Ht 168 cm; Wt 106.2 kg
[~2019-09-09 16:02] MED LIST: CEPH-507 PO; OMEP20TA7 PO
--- NOTE | 2019-09-09 16:11 | NUR ---
BEKAH GARCIA presented to unit via ambulation from ED, accompanied by family, with c/o CONTRACTIONS. BEKAH GARCIA S weighed, gowned, voided, and to bed. EFHM and TOCO applied, VS taken. BEKAH GARCIA oriented to bed controls, call light, TV, heat, and A/C controls.
[2019-09-09 16:30] VITALS: BP 116/58
[2019-09-09 16:44] LABS: BILIRUBIN,URINE NEGATIVE (NEGATIVE); CLARITY,URINE CLEAR; COLOR,URINE YELLOW; GLUCOSE, URINE (UA) NEGATIVE (NEGATIVE); KETONES,URINE NEGATIVE (NEGATIVE); LEUKOCYTE ESTERASE ,URINE 1+ (NEGATIVE); NITRITE,URINE NEGATIVE (NEGATIVE); PH,URINE 6.5 (5-9); PROTEIN,URINE NEGATIVE (NEGATIVE)
[2019-09-09 16:56] LABS: BACTERIA,URINE FEW /HPF
[2019-09-09 16:57] LABS: AMORPHOUS SEDIMENT,UR RARE AMOR URATES /LPF
--- NOTE | 2019-09-09 17:03 | NUR ---
Dr. Pimentel called and notified of pt arrival and c/o ctx. notified of pt report that she is due December 31 (23.5weeks) and sees a doctor in [place], [place]. Pt reports robbin q10min off and on since last night, and also had mucousy discharge x1 this afternoon. Pt denies complications with current or previous pregnancies, vaginal itching or burning, UTI s/sx, or recent intercourse. FHR, ctx pattern, VS, UA reported to Dr. Cates rec'd to encourage pt to orally hydrate, call in macrobid 100mg BID x7 days and D/C home.
[2019-09-09] MEDS ORDERED: PREN-53 PO (17:26)
[2019-09-09] MEDS ORDERED: NITR-65 PO (17:27)
--- NOTE | 2019-09-09 17:35 | NUR ---
Discharge instructions explained to pt with copy provided to pt. Pt notified of script called to [facility] pharmacy. Pt verbalizes understanding of instructions and signs to verify. Denies questions or concerns at this time. Pt ambulates off unit to private vehicle accompanied by family. NO s/s of distress noted
--- NOTE | 2019-09-12 08:06 | Physician Query-Final Dx ---
Clinic Account Progress/Dx Physician Query: Please give diagnosis Please include # weeks gestation Date of Service Sep 09, 2019 at 16:02 ONUR BOYER Sep 12, 2019 08:06
== END 2019-09-09 17:35 | disposition home or self-care (01) ==
LOC: WSo 16:02 → LDRP 16:02 → WSo 17:35
PROVIDERS: ATTEND Family Medicine
DX: O62.9 Abnormality of forces of labor, unspecified (principal); Z3A.23 23 weeks gestation of pregnancy
CPT/HCPCS: 81000; 87088; 99213

== ENCOUNTER 2019-09-20 20:08 | Emergency (ER) | payer MEDICARE, MEDICAID ==
[~2019-09-20] VITALS: Ht 170 cm; Wt 107.0 kg
[~2019-09-20 20:08] MED LIST changes: +NITR-65 PO; +PREN-53 PO
[2019-09-20] MEDS ORDERED: RX-MUPIROCIN (BACTROBAN) 2% OINT 22 GM TUBE TOP STA (20:21)
--- NOTE | 2019-09-20 20:29 | ED Integumentary General ---
General Chief Complaint: Bite-Animal/Human/Insect Stated Complaint: INSECT BITE Source: patient Exam Limitations: no limitations History of Present Illness Date Seen by Provider: Sep 20, 2019 Time Seen by Provider: 20:23 Initial Comments To ER with a suspected insect bite to the anterior abdomen. She is 5 weeks 5 months . Abscesses present for 3-4 days area no fevers or chills. Timing/Duration: just prior to arrival Severity: moderate Possible Cause: no cause identified Associated Symptoms: denies symptoms Allergies and Home Medications Allergies Coded Allergies: No Known Drug Allergies (Unverified , 09/18/12) Home Medications Nitrofurantoin Monohyd/M-Cryst 100 Mg Capsule, 1 TAB PO BID Prescribed by: FLO DE DIOS on 09/09/191726 Dmd910/Iron Fumarate/FA/Dss 1 Each Tablet, 1 EACH PO DAILY, (Reported) Patient Home Medication List Home Medication List Reviewed: Yes Review of Systems Review of Systems Constitutional: see HPI EENTM: see HPI Respiratory: no symptoms reported Cardiovascular: no symptoms reported Genitourinary: no symptoms reported Musculoskeletal: no symptoms reported Skin: see HPI Psychiatric/Neurological: No Symptoms Reported Endocrine: No Symptoms Reported Past Pipbapc-Siazau-Aiyjxh Hx Patient Social History Type Used: Cigarettes 2nd Hand Smoke Exposure: No Recent Foreign Travel: No Contact w/Someone Who Travel: No Recent Hopitalizations: No Seasonal Allergies Seasonal Allergies: No Past Medical History Surgeries: Yes Adenoidectomy, Tonsillectomy Respiratory: Yes Asthma Cardiac: No Neurological: No Genitourinary: No Gastrointestinal: No Musculoskeletal: No Endocrine: No HEENT: No Cancer: No Psychosocial: No Integumentary: No Blood Disorders: No Physical Exam Vital Signs Capillary Refill : General Appearance: WD/WN, no apparent distress HEENT: PERRL/EOMI, normal ENT inspection Respiratory: no respiratory distress, no accessory muscle use Neurologic/Psychiatric: alert, normal mood/affect, oriented x 3 Skin: normal color, warm/dry Skin Problem Character: abscess, other (marble-sized area of fluctuance to the anterior abdominal wall surrounded by 2 cm of erythema) Procedures/Interventions I&D : Blade Size: 11 Progress Anesthetized locally with 0.25 mL of 1% lidocaine without epinephrine, cleaned with alcohol swab, incised with 11 blade scalpel, small amount of purulent material expressed, culture collected and sent to lab, covered with gauze. Progress/Results/Core Measures Results/Orders My Orders Orders - EDEN CONDE APRN Wound Culture (09/20/19 20:21) Clindamycin Capsule (Cleocin Capsule) (09/20/19 20:30) Rx-Mupirocin 2% Oint (Rx-Bactroban) (09/20/19 20:21) Departure Impression Primary Impression: Abdominal wall abscess Disposition: HOME, SELF-CARE Condition: Stable Departure-Patient Inst. Decision time for Depature: 20:27 Referrals: NO,LOCAL PHYSICIAN (PCP/Family) Primary Care Physician Patient Instructions: Abscess Incision and Drainage (DC) Add. Discharge Instructions: 1. Apply topical antibiotic ointment twice daily for 7 days. Take the oral antibiotics 3 times daily for 7 days. Follow-up with your doctor next week for recheck. All discharge instructions reviewed with patient and/or family. Voiced understanding. Scripts Clindamycin HCl (Clindamycin HCl) 300 Mg Capsule 300 MG PO TID, #21 CAP Prov: EDEN CONDE APRN 09/20/19 EDEN CONDE APRN Sep 20, 2019 20:29
[2019-09-20] MEDS ORDERED: CLIN300C11 PO (20:30)
[2019-09-20] MEDS ORDERED: CLINDAMYCIN 150 MG (CLEOCIN) CAP PO ONE (20:30)
[2019-09-20 20:37] VITALS: BP 97/64
== END 2019-09-20 20:39 | disposition home or self-care (01) ==
LOC: EDUNIT# 20:08 → ER 20:09
DX: O99.719 Diseases of the skin and subcutaneous tissue complicating pregnancy, unspecified trimester (principal); L02.211 Cutaneous abscess of abdominal wall; Z3A.00 Weeks of gestation of pregnancy not specified
CPT/HCPCS: 87070; 87077; 87186; 87205; 99283

== ENCOUNTER 2019-10-03 20:49 | Observation (INO) | payer MEDICARE, MEDICAID ==
[~2019-10-03] VITALS: Ht 167.7 cm; Wt 106.4 kg
[~2019-10-03 20:49] MED LIST changes: +CLIN300C11 PO
--- OUTSIDE RECORDS SUMMARY | 2019-10-03 20:55 | XMS REPORT ---
Author Author Bianca Mace Doctor Organization [facility] Address Unknown Phone Unavailable Care Team Providers Care Senior Game Developer Name Role Phone Migration, Doctor Unavailable Unavailable PROBLEMS Type Condition ICD9-CM Code BXL62-BW Code Onset Dates Condition S tatus SNOMED Code Problem Screening for malignant neoplasm of the cervix V76.2 Active 325782395 Problem Counseling on substance use and abuse V65.42 Active 361242742 Problem Screening examination for venereal disease V74.5 Active 961335695 Problem Pain in joint, shoulder region 719.41 Active 716522214 Problem Pain in joint, hand 719.44 Active 176975178 Problem Need for prophylactic vaccination and inoculation, Influen za V04.81 Active 521318157 Problem Problems related to high-risk sexual behavior V69.2 Active 441067737 Problem Abdominal pain, left lower quadrant 789.04 Active 023523094 Problem Unspecified site of ankle sprain and strain 845.00 Active 65753263 Problem Cough 786.2 Active 99857822 Problem Nausea alone 787.02 Active 5521902 07 Problem Headache 784.0 Active 70612255 Problem Postnasal drip 784.91 Active 01956 007 Problem Urinary tract infection, site not specified 599.0 Active 49411737 Problem Asthma, unspecified, unspecified status 493.90 Active 23311055 Problem Acute pharyngitis 462 Active 36 6076646 Problem Streptococcal sore throat 034.0 Acti ve 18567099 Problem General counseling for initiation of oth er contraceptive measures V25.02 Active 535262111165512 Problem Allergic sinusitis J30.9 Active 3 6645232 Problem Unspecified contraceptive management V25.9 Active 657589866 Problem examination or test, negative result V72.41 Active 739624173 Problem Acute sinusitis, unspecified 461.9 A ctive 62809616 Problem Unspecified infective otitis externa 380.10 Active 70550433 Problem Allergic rhinitis, cause unspecified 477.9 Active 63235096 Problem Nondependent tobacco use disorder 305.1 Active 414501264 ALLERGIES No Information ENCOUNTERS Encounter Location Date [facility] [address] [facility] [id number] [place] [address] Sep, Allergic sinusitis J30.9 [facility] [address] [id number] [place] [address] 14 Oct, 2014 [facility] [id number] [place] [address] Oct, [facility] [id number] [place] [address] Dec, [facility] [id number] [place] [address] Dec, [facility] [id number] [place] [address] Dec, [facility] [id number] [place] [address] Dec, [facility] [id number] [place] [address] Oct, [facility] [id number] [place] [address] Oct, [facility] [id number] [place] [address] 17 Oct, 2013 [facility] [id number] [place] [address] Oct, [facility] [id number] [place] [address] 14 Oct, 2013 [facility] [id number] [place] [address] Oct, [facility] [id number] [place] [address] Sep, [facility] [id number] [place] [address] Sep, [facility] [id number] [place] [address] Aug, [facility] [place] [facility] [address] [facility] [id number] [facility] [place] [address] Aug, [facility] [place] [facility] [address] [facility] [id number] [facility] [place] [address] Aug, [facility] [place] [facility] [address] [id number] [facility] [place] [address] Jul, [facility] [place] [facility] [address] [id number] [place] [address] Jul, [facility] [place] [facility] [address] [facility] [id number] [place] [address] Apr, [facility] [place] [facility] [address] [id number] [place] [address] Mar, [facility] [place] [facility] [address] [id number] [facility] [place] [address] Feb, [facility] [place] [facility] [address] [id number] [facility] [place] [address] Feb, [facility] [place] [facility] [address] [facility] [id number] [facility] [place] [address] Feb, [facility] [place] [facility] [address] [id number] [facility] [place] [address] Feb, [facility] [place] [facility] [address] [id number] [place] [address] Feb, [facility] [place] [facility] [address] [id number] [place] [address] Feb, [facility] [place] [facility] [address] [facility] [id number] [facility] [place] [address] Feb, [facility] [place] [facility] [address] [facility] [id number] [place] [address] Feb, [facility] [place] [facility] [address] [facility] [id number] [place] [address] Jan, [facility] [place] [facility] [address] [id number] [facility] [place] [address] Jan, [facility] [place] [facility] [address] [id number] [place] [address] Jan, [facility] [place] [facility] [address] [id number] [place] [address] Dec, [facility] [place] [facility] [address] [id number] [place] [address] Dec, [facility] [place] [facility] [address] [id number] [place] [address] Dec, [facility] [place] [facility] [address] [id number] [place] [address] November, [facility] [place] [facility] [address] [id number] [place] [address] November, [facility] [place] [facility] [address] [id number] [place] [address] November, [facility] [place] [facility] [address] [id number] [place] [address] Sep, [facility] [place] [facility] [id number] [place] [address] Sep, [facility] [place] [facility] [address] [id number] [place] [address] Aug, [facility] [place] [facility] [address] [id number] [place] [address] Aug, [facility] [place] [facility] [address] [id number] [place] [address] Aug, [facility] [place] [facility] [address] [id number] [place] [address] Jul, [facility] [place] [facility] [address] [id number] [place] [address] May, [facility] [place] [facility] [id number] [place] [address] May, [facility] [place] [facility] [address] [id number] [place] [address] May, [facility] [place] [facility] [id number] [place] [address] May, [facility] [address] [id number] [place] [address] Apr, [facility] [address] [id number] [place] [address] Apr, [facility] [address] [id number] [place] [address] May, [facility] [address] [id number] [place] [address] May, IMMUNIZATIONS No Known Immunizations SOCIAL HISTORY Never Assessed REASON FOR VISIT PLAN OF CARE VITAL SIGNS MEDICATIONS No Known Medications RESULTS No Results PROCEDURES No Known procedures INSTRUCTIONS MEDICATIONS ADMINISTERED No Known Medications
--- NOTE | 2019-10-03 21:23 | ED Lower Extremity ---
General Chief Complaint: Lower Extremity Stated Complaint: R FOOT INJ Source: patient Exam Limitations: no limitations History of Present Illness Date Seen by Provider: Oct 03, 2019 Time Seen by Provider: 21:20 Initial Comments To ER with reports of right foot injury. She stepped on a stick 3 days ago while wearing flip-flops, the stick went between the flip-flop in the bottom of her foot ultimately puncturing the foot plantar surface between the first and second toe. She states she was able to pull a few chunks of the stick out of her foot but believes there is some left. Since then she's had redness swelling and today inability to bear weight on the foot because of pain. No fevers. She is , 7 months with a due date of December 31. No care, she has not established with anyone for primary care of this . She is unsure of her last tetanus vaccine date, believes it to be greater than 5 years ago. Onset: just prior to arrival Severity: moderate Pain/Injury Location: right foot Modifying Factors: Worse With Movement Allergies and Home Medications Allergies Coded Allergies: No Known Drug Allergies (Unverified , 09/18/12) Home Medications Clindamycin HCl 300 Mg Capsule, 300 MG PO TID Prescribed by: EDEN CONDE on 09/20/19 2030 Nitrofurantoin Monohyd/M-Cryst 100 Mg Capsule, 1 TAB PO BID Prescribed by: FLO DE DIOS on 09/09/19 1727 [id number]/Iron Fumarate/FA/Dss 1 Each Tablet, 1 EACH PO DAILY, (Reported) Patient Home Medication List Home Medication List Reviewed: Yes Review of Systems Constitutional: see HPI EENTM: see HPI Respiratory: no symptoms reported Cardiovascular: no symptoms reported Genitourinary: no symptoms reported Musculoskeletal: see HPI Skin: see HPI Psychiatric/Neurological: No Symptoms Reported Past Dmfvwrl-Tusvhu-Qgyvrv Hx Patient Social History Type Used: Cigarettes 2nd Hand Smoke Exposure: No Recent Foreign Travel: No Contact w/Someone Who Travel: No Recent Hopitalizations: No Immunizations Up To Date Date of Influenza Vaccine: May 12, 2019 Seasonal Allergies Seasonal Allergies: No Past Medical History Surgeries: Yes Adenoidectomy, Tonsillectomy Respiratory: Yes Asthma Cardiac: No Neurological: No Genitourinary: No Gastrointestinal: No Musculoskeletal: No Endocrine: No HEENT: No Cancer: No Psychosocial: No Integumentary: No Blood Disorders: No Physical Exam Vital Signs Vital Signs - First Documented 10/03/19 21:11 Temp 36.2 Pulse 83 Resp 20 B/P (MAP) 120/55 (76) Pulse Ox 98 Capillary Refill : Height, Weight, BMI Height: 5'6.00" Weight: 250lbs. oz. 113.724933hh; 37.00 BMI Method:Stated General Appearance: WD/WN, no apparent distress HEENT: PERRL/EOMI Respiratory: no respiratory distress, no accessory muscle use Hips: bilateral hip non-tender, bilateral hip normal inspection, bilateral hip normal range of motion Legs: bilateral leg non-tender, bilateral leg normal inspection, bilateral leg normal range of motion Knees: bilateral knee non-tender, bilateral knee normal inspection, bilateral knee normal range of motion Ankles: bilateral ankle non-tender, bilateral ankle normal inspection, bi lateral ankle normal range of motion Feet: right foot other (there is swelling to the dorsal and plantar surface of the forefoot on the right. There is a puncture wound to the plantar surface of the foot between the first and second distal metatarsals. On bedside ultrasound there is some shadowing about a centimeter deep consistent with retained foreign body.) Neurologic/Psychiatric: alert, normal mood/affect, oriented x 3 Skin: normal color, warm/dry Progress/Results/Core Measures Results/Orders Lab Results Laboratory Tests Test 10/03/19 21:19 Range/Units White Blood Count 10.7 4.3-11.0 10^3/uL Red Blood Count 4.21 L 4.35-5.85 10^6/uL Hemoglobin 11.8 11.5-16.0 G/DL Hematocrit 35 35-52 % Mean Corpuscular Volume 82 80-99 FL Mean Corpuscular Hemoglobin 28 25-34 PG Mean Corpuscular Hemoglobin Concent 34 32-36 G/DL Red Cell Distribution Width 15.4 H 10.0-14.5 % Platelet Count 287 130-400 10^3/uL Mean Platelet Volume 9.5 7.4-10.4 FL Neutrophils (%) (Auto) 65 42-75 % Lymphocytes (%) (Auto) 27 12-44 % Monocytes (%) (Auto) 6 0-12 % Eosinophils (%) (Auto) 2 0-10 % Basophils (%) (Auto) 0 0-10 % Neutrophils # (Auto) 7.0 1.8-7.8 X 10^3 Lymphocytes # (Auto) 2.9 1.0-4.0 X 10^3 Monocytes # (Auto) 0.7 0.0-1.0 X 10^3 Eosinophils # (Auto) 0.2 0.0-0.3 10^3/uL Basophils # (Auto) 0.0 0.0-0.1 10^3/uL Sodium Level 137 135-145 MMOL/L Potassium Level 3.2 L 3.6-5.0 MMOL/L Chloride Level 107 98-107 MMOL/L Carbon Dioxide Level 18 L 21-32 MMOL/L Anion Gap 12 5-14 MMOL/L Blood Urea Nitrogen 4 L 7-18 MG/DL Creatinine 0.64 0.60-1.30 MG/DL Estimat Glomerular Filtration Rate > 60 BUN/Creatinine Ratio 6 Glucose Level 102 70-105 MG/DL Calcium Level 8.9 8.5-10.1 MG/DL My Orders Orders - EDEN CONDE CONSTRUCTION LABORER Cbc With Automated Diff (10/03/19 21:16) Ed Iv/Invasive Line Start (10/03/19 21:16) Foot, Right, 3 View (10/03/19 21:23) Basic Metabolic Panel (10/03/19 21:24) Vital Signs/I&O 10/03/19 21:11 Temp 36.2 Pulse 83 Resp 20 B/P (MAP) 120/55 (76) Pulse Ox 98 Departure Communication (Admissions) Time/Spoke to Admitting Phy: 22:[address] FIGUEROA, we'll admit, tentative plan for removal of foreign body under fluoroscopy in the operating room tomorrow morning. No radiopaque foreign body seen on plain films, there is shadowing as mentioned seen on the bedside ultrasound. This would be consistent with the wood that she allegedly stepped on. I have printed these images and placed first occur on them and sent them upstairs with her chart. Impression Primary Impression: Cellulitis of foot Additional Impression: Retained foreign body Disposition: ADMITTED INPATIENT Condition: Stable Admissions Decision to Admit Reason: Admit from ER (General) Decision to Admit/Date: Oct 03, 2019 Time/Decision to Admit Time: 22:07 Departure-Patient Inst. Referrals: [facility] (PCP/Family) Primary Care Physician EDEN CONDE APRN Oct 03, 2019 21:23
[2019-10-03 21:29] LABS: BASOPHILS % (AUTO) 0 % (0-10); EOSINOPHILS # (AUTO) 0.2 10^3/uL (0.0-0.3); EOSINOPHILS % (AUTO) 2 % (0-10); HEMATOCRIT 35 % (35-52); HEMOGLOBIN 11.8 G/DL (11.5-16.0); LYMPHOCYTES # (AUTO) 2.9 X 10^3 (1.0-4.0); LYMPHOCYTES % (AUTO) 27 % (12-44); MEAN CORPUSCULAR HEMOGLOBIN 28 PG (25-34); MEAN CORPUSCULAR HGB CONC 34 G/DL (32-36); MEAN CORPUSCULAR VOLUME 82 FL (80-99); MEAN PLATELET VOLUME 9.5 FL (7.4-10.4); MONOCYTES # (AUTO) 0.7 X 10^3 (0.0-1.0); MONOCYTES % (AUTO) 6 % (0-12); NEUTROPHILS % (AUTO) 65 % (42-75); PLATELET COUNT 287 10^3/uL (130-400); RED CELL DISTRIBUTION WIDTH 15.4 % (10.0-14.5); WHITE BLOOD COUNT 10.7 10^3/uL (4.3-11.0)
[2019-10-03 21:46] LABS: BUN/CREATININE RATIO 6; CALCIUM 8.9 MG/DL (8.5-10.1); CARBON DIOXIDE 18 MMOL/L (21-32); CHLORIDE 107 MMOL/L (98-107); CREATININE SERUM 0.64 MG/DL (0.60-1.30); GFR ESTIMATED > 60; GLUCOSE 102 MG/DL (70-105); POTASSIUM 3.2 MMOL/L (3.6-5.0); SODIUM 137 MMOL/L (135-145)
[2019-10-03] MEDS ORDERED: PIPERACILLIN SODIUM/TAZOBACTAM 4.5 GM in NS (IVPB) 100 ML IV ONE (22:30)
[2019-10-03] MEDS ORDERED: TETANUS,DIPTH,PERTUSS P/F (BOOSTRIX) 0.5 ML VIAL IM ONE (22:30)
--- NOTE | 2019-10-03 22:39 | NUR ---
RECEIVED REPORT FROM ANGELINA DURAN AT THIS TIME
--- NOTE | 2019-10-03 23:15 | NUR ---
BEKAH GARCIA admitted to room 419-1, with an admitting diagnosis of CELLULITIS, on 10/03/19 from [place] via , accompanied by STAFF.BEKAH GARCIA S introduced to surroundings, call light, bed controls, phone, TV, temperature control, lights, meal times, smoking policy, visitor policy, side rail policy, bathrooms and showers. Patient Rights given to patient in the handbook.BEKAH GARCIA verbalizes understanding that [facility] is not responsible for the loss or damage to any personal effects or valuables that are kept in the patients posession during their hospitalization. Patient and/or family were informed about the Rapid Response Team and its purpose.
[2019-10-03 23:17] VITALS: BP 100/58
[2019-10-03 23:32] VITALS: BP 100/58
[2019-10-04] VITALS (9 sets, daily range): BP systolic 94–113; BP diastolic 44–72
[2019-10-04] MEDS ORDERED: ONDANSETRON 4 MG/2 ML (SDV) Z0FRAN IV PRN (00:45)
[2019-10-04] MEDS: NS W/KCL 40 MEQ/L 1,000 ML IV SCH ×3 (00:53→16:08)
[2019-10-04] MEDS ORDERED: PIPERACILLIN/TAZO 4.5 GM VIAL (ZOSYN) IV ONE (03:54)
[2019-10-04] MEDS ORDERED: NS (IVPB) 100 ML ONE (03:54)
[2019-10-04] MEDS: PIPERACILLIN/TAZO 4.5 GM/NS 100 ML IV SCH ×4 (04:12→11:30)
[2019-10-04] MEDS: fentaNYL INJECTION 100 MCG/2 ML AMP IV PRN ×3 (04:22→16:21)
--- NOTE | 2019-10-04 06:26 | Diagnostic Imaging Report ---
INDICATION: Foreign object right foot. TECHNIQUE: 3 views of the right foot CORRELATION STUDY: None FINDINGS: Hallux valgus primus versus alignment is present. The osseous structures appear to be intact. No acute bony abnormality. Mildly prominent plantar calcaneal spur. There is rather pronounced soft tissue swelling over the foot particularly along the plantar aspect distally. There is what appears to be likely small skin defect along the plantar aspect. Definitive soft tissue foreign bodies not visualized. IMPRESSION: 1. Negative for acute findings of the foot. 2. Marked edema about the right foot particularly along the distal plantar aspect. Definitive radiographic soft tissue foreign body, however, not visualized. Consideration for follow-up with ultrasound and/or MRI may be of additional benefit. Dictated by: Dictated on workstation # [id number]
[2019-10-04] MEDS ORDERED: ACET325T38 PO (07:49)
--- NOTE | 2019-10-04 07:49 | NUR ---
SPOKE WITH THE PT AND WENT THRU THE EXT MED HISTORY TO COMPLETE THE MED REC. IN THE EXT MED HISTORY IT SHOWS CETIRIZINE 10MG AND FLONASE SPRAY- PT SAID SHE HAS BOTH OF THESE BUT HAS NOT STARTED USING EITHER ONE. OTC MEDS: TYLENOL PRN
--- NOTE | 2019-10-04 11:01 | Progress Note-Pre Operative ---
Pre-Operative Progress Note H&P Reviewed The H&P was reviewed, patient examined and no changes noted. Date Seen by Provider: Oct 04, 2019 Time Seen by Provider: 10:00 Date H&P Reviewed: Oct 04, 2019 Time H&P Reviewed: 10:00 Pre-Operative Diagnosis: right foot foreign body, cellulitis, possible abscess PJ FIGUEROA MD Oct 04, 2019 11:01
[2019-10-04] MEDS ORDERED: AMOX-358 PO (11:04)
--- NOTE | 2019-10-04 11:06 | Discharge Inst-Surgical ---
D/C Lap Instructions-CAROLINA New, Converted, or Re-Newed RX: RX on Chart Follow Up Appt in 2 weeks Activity as tolerated gauze followed by kerlix followed by snug elizabeth from forefoot to just below knee. elevate as much as possible. Regular Diet Symptoms to Report: Fever over 101 degree F, Nausea/Vomiting Infection Signs and Symptoms to report: Increased redness, Foul odor of wound, Increased drainage Bathing instructions: May shower Operative Area Clean/Dry; Keep incision clean/dry If any problems/questions: Contact your physician or go to Emergency Room PJ FIGUEROA MD Oct 04, 2019 11:06
[2019-10-04] MEDS: LACTATED RINGERS 1,000 ML IV PRN ×2 (11:10→11:50)
--- NOTE | 2019-10-04 11:15 | NUR ---
"RD ASSESSMENT PMHx: no significant PMHx PT INTERACTION: Pt was awake and pleasant during nutrition assessment. Note pt is 7mon gestation. Pt states current appetite is good, and has been for some time. Note pt is currently NPO for procedure. Pt states no recent issues with n/v/c/d at this time, and that her last BM was 10/03. Note pt not currently on bowel regimen per chart review. Note pt has presence of wound on R foot, per chart review. Note pt is currently and states her weight is increasing at a normal rate. Note unable to determine recent wt hx, per chart review. ABNORMAL NUTRITION-RELATED LAB VALUES LOW: K 3.2; BUN 4 HIGH: Est. kcal needs: 6212-2526 kcal | 20-25 kcal/kg Est. Pro needs: 106-128 g Pro | 1.0-1.2 g Pro/kg PES STATEMENT: Inadequate protein intake (NI-5.6.1) related to increased protein needs as evidenced by presence of wound (R foot) INTERVENTION: Note pt is currently NPO for procedure. Would recommend diet advancement when medically able and as tolerated. Upon diet advancement, would recommend adding Ensure HP (vary) to meals TID. Provides 160 kcal and 16 g Pro per serving for perceived benefit to wound healing. Will continue to follow and reassess as pt needs, intake, and status change. MONITOR/EVALUATE: PO Intake; Plan of Care; Hydration Status; Weight Status; Lab Values Yaritza Bhatt, MS, RD, LD"
--- NOTE | 2019-10-04 11:28 | HISTORY AND PHYSICAL ---
DATE OF SERVICE: ATTENDING PRIMARY CARE PHYSICIAN: [facility]. HISTORY OF PRESENT ILLNESS: The patient is a 29-year-old female who is 28 weeks' gestation, who reports wearing sandals and ultimately was walking and felt a pain between the plantar surface between the first and second metatarsals. She states that this was a wood splinter and she was able to pull out some pieces, however, believes some retained within the wound. She then developed redness and swelling as well as pain. She does not report having care at this time. She has not established primary care at this point. Upon examination, the patient did have inflammation, edema and erythema of the plantar aspect of the right forefoot. An x-ray was performed, which did show some slight radiopaque region, which may indicate a retained foreign body. PAST MEDICAL HISTORY: None. At approximately 28 weeks' gestation. PAST SURGICAL HISTORY: Tonsillectomy. ALLERGIES: No known drug allergies. MEDICATIONS: Recently started on clindamycin and nitrofurantoin. SOCIAL HISTORY: Positive smoke, negative alcohol. FAMILY HISTORY: Noncontributory. VITAL SIGNS: Temperature 36.3, blood pressure 103/61, pulse 65, respirations 20, pulse ox 96% on room air. REVIEW OF SYSTEMS: A well-nourished female, currently in no acute distress. She is not experiencing any shortness of breath or difficulty breathing. No chest pain, palpitations, diaphoresis. No nausea, vomiting. No diarrhea or constipation. No fever, chills. No recent inadvertent weight loss. All other review of systems negative. PHYSICAL EXAMINATION: CHEST: Clear. Good breath sounds bilaterally. HEART: Regular, no murmurs. EXTREMITIES: No lower extremity edema, negative Homans sign. HEENT: No scleral icterus. NECK: No cervical lymphadenopathy. ABDOMEN: Soft, nontender, nondistended. SKIN: Along the right forefoot, along the plantar as well as the dorsal aspect, there is edema. There is some mild amount of redness as well as a small puncture opening between the first and second metatarsals. She has palpable posterior tibial and dorsalis pedis pulses. LABORATORY DATA: WBC 10.7, hemoglobin 11.8, hematocrit 35, platelets 287. ASSESSMENT AND PLAN: A 29-year-old female with foreign body, right forefoot with surrounding cellulitis and possible abscess. We will proceed with exploration under fluoroscopy as well as removal of foreign body as well as debridement as necessary. Afterwards, she will need daily dressing changes as well as Kerlix wrap, mild compression dressing as well as leg elevation as well as oral antibiotics. Job ID: [id number] DocumentID: [id number] Dictated Date: 10/04/2019 11:00:10 Customer Assistant Date: 10/04/2019 11:27:55 Dictated By: PJ FIGUEROA MD
[2019-10-04] MEDS ORDERED: BUP/EPI 0.5% 1:200,000 (SENSORCAINE) 30 ML VIAL ONE (11:34)
--- NOTE | 2019-10-04 12:08 | Progress Note-Post Operative ---
Post-Operative Progess Note Surgeon (s)/Rubber Goods Supervisor (s) Surgeon PJ FIGUEROA MD Rubber Goods Supervisor: none Pre-Operative Diagnosis right foot foreign body, cellulitis, possible abscess Post-Operative Diagnosis right foot foreign body, abscess. Procedure & Operative Findings Date of Procedure 10/04/19 Procedure Performed/Findings removal foreign body, drainage abscess, debridment skin and subcutaneous(2x3cm). Anesthesia Type spinal with local Estimated Blood Loss Estimated blood loss (mL): minimal Specimens/Packing Specimens Removed abscess for c&s PJ FIGUEROA MD Oct 04, 2019 12:08
--- NOTE | 2019-10-04 13:19 | Anesthesia-Regional Post-Op ---
Regional Patient Condition Mental Status: Alert, Oriented x3 Circulation: Same as Pre-Op Headache: Absent Sensation: Full Recovery Motor Block: Absent Post Op Complications Complications None Follow Up Care/Instructions Patient Instructions None needed. Anesthesia/Patient Condition Patient is doing well, no complaints, stable vital signs, no apparent adverse anesthesia problems. No complications reported per nursing. FILI AMBRIZ CRNA Oct 04, 2019 13:19
--- NOTE | 2019-10-04 13:28 | OPERATIVE REPORT ---
DATE OF SERVICE: 10/04/2019 ATTENDING PRIMARY: [facility]. PREOPERATIVE DIAGNOSIS: Right foot cellulitis, abscess and foreign body. POSTOPERATIVE DIAGNOSES: Right foot cellulitis, abscess and foreign body with a large wood foreign body and abscess as well as mild surrounding necrotic subcutaneous fat pad. PROCEDURE: Incision, drainage, abscess, debridement of devitalized subcutaneous tissue and skin, removal of foreign body. SURGEON: Pj Figueroa MD. ANESTHESIA: Spinal with local. ESTIMATED BLOOD LOSS: Minimal. FINDINGS: Right foot cellulitis, abscess and foreign body with a large wood foreign body and abscess as well as mild surrounding necrotic subcutaneous fat pad. DISPOSITION: The patient tolerated the procedure well. INDICATIONS: The patient is a 29-year-old female at approximately 28 weeks' gestation, who reports wearing sandals and ultimately was walking and felt a pain along the plantar surface between the first and second metatarsals. She noticed a wood splinter and was able to pull out some pieces; however, believes there was a retained portion within the wound. She then developed redness, swelling and pain and was seen in the Emergency Department. She has not had any care and states that she moved to this area recently. Upon examination, she had erythema, edema and inflammation along the plantar aspect of the right forefoot and an x-ray did show slight radiopaque region indicating retained foreign body. DESCRIPTION OF PROCEDURE: The patient was brought to the operating room, laid supine on the table. After adequate IV pain and sedative medications and spinal anesthesia, the right foot and leg were prepped and draped in standard surgical fashion. A 0.5% Marcaine with epinephrine was used to anesthetize the overlying skin and subcutaneous tissue within the opening along the puncture site along the plantar aspect of the foot. An incision vertically was then made using a 15 blade. An abscess pocket was identified and this was sent for culture and sensitivity. We then proceeded with exploration with a large retained wood splinter identified and removed intact. Remainder of the wound was explored with no other foreign bodies identified. The devitalized subcutaneous tissue and skin were then debrided which encompassed 3 x 2 cm segment using a 15 blade as well as electrocautery. The abscess cavity was then copiously irrigated and suctioned out. The abscess cavity was then packed with half inch iodoform gauze followed by 4 x 4 gauze followed by Kerlix wrap followed by 4-inch Jose wrap and an 6-inch Jose wrap up to just below the knee. Walking boot was then applied. The patient tolerated the procedure well. She will be instructed to remove the packing and then to just apply gauze followed by the Kerlix followed by the Jose bandage from the forefoot all the way to just below the knee on a daily basis. We will also proceed with Augmentin 875 mg b.i.d. for 7 days and we will have her follow up in the office. Job ID: [id number] DocumentID: [id number] Dictated Date: 10/04/2019 12:14:43 Prep Manager Date: 10/04/2019 13:27:15 Dictated By: PJ FIGUEROA MD MTDD
== END 2019-10-04 17:43 | disposition home or self-care (01) ==
LOC: EDUNIT# 20:49 → ER 20:51 → 4TH 22:02
PROVIDERS: ADMIT Surgery; ATTEND Surgery
DX: O9A.213 Injury, poisoning and certain other consequences of external causes complicating pregnancy, third trimester (principal); S91.341A Puncture wound with foreign body, right foot, initial encounter; O99.713 Diseases of the skin and subcutaneous tissue complicating pregnancy, third trimester; L03.115 Cellulitis of right lower limb; O09.33 Supervision of pregnancy with insufficient antenatal care, third trimester; O99.513 Diseases of the respiratory system complicating pregnancy, third trimester; J45.909 Unspecified asthma, uncomplicated; O99.333 Smoking (tobacco) complicating pregnancy, third trimester; Z3A.28 28 weeks gestation of pregnancy; Z23 Encounter for immunization; W22.8XXA Striking against or struck by other objects, initial encounter
CPT/HCPCS: 36415; 73630; 80048; 85025; 87070; 87075; 87077; 87081; 87186; 87205; 90715